=== PATIENT | male | born 1970 | race Caucasian/White ===

== ENCOUNTER 2022-07-10 04:10 | Emergency (ER) | payer BC ==
[~2022-07-10] VITALS: Ht 185.4 cm; Wt 95.3 kg
[2022-07-10 04:16] VITALS: BP 130/77
[2022-07-10] MEDS ORDERED: NACL 0.9% 1,000 ML IV ONE (04:35)
[2022-07-10] MEDS ORDERED: ONDANSETRON 4 MG/2 ML VIAL IVP ONE (04:35)
[2022-07-10] MEDS ORDERED: ACETAMINOPHEN EXTRA STRENGTH 500 MG TAB PO ONE (04:35)
--- NOTE | 2022-07-10 04:43 | NUR ---
Patient ambulated to bed 12.
--- NOTE | 2022-07-10 04:52 | NUR ---
52 y/o male bibs from home, C/O nausea, vomiting and diarrhea x 2 days. denies blood in vomit or diarrhea. no trauma noted. a/ox4, unlabored breathing, ambulatory w/o assistance. denies fever, cough, cp, or sob. skin is pink/warm/dry. PMHx: gastritis and HTN nka
--- NOTE | 2022-07-10 05:00 | NUR ---
blood samples collected and walked to lab
--- NOTE | 2022-07-10 06:07 | NUR ---
Dr. Sandoval examining patient.
--- NOTE | 2022-07-10 07:23 | NUR ---
Pt report given to GEORGES DANIEL. Transfer of care at this time.
[2022-07-10 07:30] LABS: ALBUMIN 3.4 g/dL (3.4-5.0); ANION GAP 13.7 (8-16); CARBON DIOXIDE 27.4 mmol/L (21-32); CREATININE 0.9 mg/dL (0.6-1.3); POTASSIUM 3.1 mmol/L (3.5-5.1); TOTAL BILIRUBIN 0.8 mg/dL (0.0-1.0)
[2022-07-10 07:31] LABS: HEMATOCRIT 47.9 % (36-52); HEMOGLOBIN 16.7 g/dL (12.0-18.0); MEAN CORPUSCULAR HEMOGLOBIN 30 pg (27-31); MEAN CORPUSCULAR HGB CONC 35 g/dL (33-37); MEAN CORPUSCULAR VOLUME 85.1 fL (80-94); PLATELET COUNT (AUTO) 211 K/uL (140-450); RED BLOOD CELL COUNT(AUTO) 5.63 MIL/uL (4.20-6.10); RED CELL DISTRIBUTION WIDTH 14.1 % (11.6-13.7); WHITE BLOOD COUNT (AUTO) 6.4 K/uL (4.8-10.8)
[2022-07-10 08:00] VITALS: BP 128/71
[2022-07-10] MEDS ORDERED: ONDA-188 PO (08:18)
[2022-07-10] MEDS ORDERED: ATRO1TAB PO (08:18)
--- NOTE | 2022-07-10 08:20 | NUR ---
Patient discharged with v/s stable. Written and verbal after care instructions given and explained. Patient verbalized understanding. Ambulatory with steady gait. All questions addressed prior to discharge. Advised to follow up with PMD.
[2022-07-10 08:27] LABS: EOSINOPHILS % (MANUAL) 2 % (0-4); LYMPHOCYTES % (MANUAL) 27 % (20-46); MONOCYTES % (MANUAL) 17 % (5-12)
== END 2022-07-10 08:20 | disposition home or self-care (01) ==
LOC: MED 04:10
DX: R11.10 Vomiting, unspecified (principal); R19.7 Diarrhea, unspecified; I10 Essential (primary) hypertension; Z90.49 Acquired absence of other specified parts of digestive tract; Z79.899 Other long term (current) drug therapy
CPT/HCPCS: 36415; 80053; 83690; 85025; 96361; 96374; 99283; J2405; J7030